=== PATIENT | male | born 1955 | race Caucasian/White ===

== ENCOUNTER 2022-04-15 07:53 | Day surgery (SDC) | payer MEDICARE ==
--- NOTE | 2022-04-14 12:47 | HP ---
DATE OF SURGERY: 04/15/2022 HISTORY OF PRESENT ILLNESS: The patient is a 67-year-old male who presents with complaints of umbilical bulging. The patient is having some pain there. The patient moved some hay and he felt this pain while he was lifting. PAST MEDICAL HISTORY: Hypertension. PAST SURGICAL HISTORY: Hernia repair. Knee replacement. ALLERGIES: NKDA. MEDICATIONS: Multivitamin, metoprolol, lisinopril, spironolactone. FAMILY HISTORY: Liver cancer. SOCIAL HISTORY: Current every day smoker. REVIEW OF SYSTEMS: CONSTITUTIONAL: Denies fever or chills. CHEST: Denies shortness of breath. CVS: Denies chest pain. ABDOMEN: Reports abdominal pain. PHYSICAL EXAMINATION: GENERAL: No acute distress. CHEST: Nonlabored. No shortness of breath. CVS: Regular rate and rhythm. ABDOMEN: Soft. Small tender umbilical hernia. IMPRESSION: Small umbilical hernia. PLAN: Umbilical hernia with possible mesh with Dr. Yovanny Frederick. As dictated by Chen Atkinson NP.
[~2022-04-15 07:53] MED LIST: Sensorcaine 0.25% 10 ML ONE
[2022-04-15] MEDS ORDERED: CEFAZOLIN 2 GM-D5W BAG** 2 GM/50 ML ML IV ONE (08:27)
[2022-04-15] MEDS ORDERED: Lactated Ringers 1,000 ML IV ONE (08:27)
[2022-04-15] MEDS ORDERED: CEFAZOLIN 2 GM-D5W BAG** 2 GM/50 ML ML IV SCH (08:30)
[2022-04-15] MEDS ORDERED: Lactated Ringers 1,000 ML IV SCH (08:30)
[2022-04-15] MEDS ORDERED: Zemuron 100 MG/10 ML ONE (12:35)
[2022-04-15] MEDS ORDERED: Versed 2 MG/2 ML Injection ONE (12:35)
[2022-04-15] MEDS ORDERED: DIPRIVAN 200 MG/20 ML IV ONE (12:35)
[2022-04-15] MEDS ORDERED: SUBLIMAZE 250 MCG/5 ML ONE (12:35)
[2022-04-15] MEDS ORDERED: Marcaine 0.5%/Epinephrine 10 ML ONE (12:43)
[2022-04-15] MEDS ORDERED: Decadron 4 MG INJ ONE (13:00)
[2022-04-15] MEDS ORDERED: Xylocaine-Mpf 2% 5 Ml Vial ONE (13:19)
[2022-04-15] MEDS ORDERED: Ephedrine Sulfate 50 MG/ML ONE (13:22)
[2022-04-15] MEDS ORDERED: BRIDION 200MG/2ML IV ONE ×2 (13:26→13:36)
--- NOTE | 2022-04-15 14:18 | OP ---
AMENDED REPORT: SURGERY DATE/TIME: 04/15/2022 1246 PREOPERATIVE DIAGNOSIS: Umbilical hernia. POSTOPERATIVE DIAGNOSIS: Umbilical hernia. PROCEDURE: Primary umbilical herniorrhaphy. SURGEON: Yovanny Frederick M.D. ANESTHESIA: General. COMPLICATIONS: None. CONDITION: Stable. DESCRIPTION OF PROCEDURE: Patient taken to surgery. General anesthetic. Routine prep and drape. Supraumbilical incision. Dissection taken down. A 1 cm defect was approximated with three sutures of #0 Prolene and it was repaired in an open fashion with sutures with no mesh. Skin closed with 4-0 Vicryl and Steri-Strips. The patient tolerated the procedure satisfactorily. Findings discussed with the in the waiting room.
[2022-04-15 14:51] VITALS: BP 139/91; PULSE 75; O2SAT 94
== END 2022-04-15 15:00 | disposition home or self-care (01) ==
LOC: SDC 07:53
PROVIDERS: ATTEND Surgery
DX: K42.9 Umbilical hernia without obstruction or gangrene (principal); Z80.0 Family history of malignant neoplasm of digestive organs
CPT/HCPCS: 64488; 76937; 76942; J0690; J1100; J2250; J2704; J3010; L0625